=== PATIENT | female | born 1975 | race African-American/Black ===

== ENCOUNTER → 2018-10-12 | Outpatient (CLI) | payer OTHER ==
[2018-09-21 09:28] VITALS: BP 107/63
[~2018-10-12] MED LIST: ALBU2.5V8 INH; ATOR10TA60 PO; CIPR250T30 PO; FLUO20CA16 PO; LISI1TAB7 PO; METO100T5 PO; METR-84 PO
--- NOTE | 2018-10-15 12:11 | RAD ---
DATE: 10/12/2018 EXAM: MAMMO JAMES SCREENING BILATERAL HISTORY: Routine screening COMPARISON: Baseline study This study was interpreted with the benefit of Computerized Aided Detection (CAD). Breast Density: SCATTERED The breast parenchyma shows scattered fibroglandular densities. Breast parenchyma level B. FINDINGS: 2-D and 3-D tomosynthesis imaging was performed in CC and MLO projections. No suspicious breast densities are seen. Benign-appearing lymph node type densities are present in the axillary tail regions. No suspicious microcalcifications are evident. IMPRESSION: There is no mammographic evidence of malignancy in either breast. BI-RADS CATEGORY: 2 BENIGN FINDING(S) RECOMMENDED FOLLOW-UP: 12M 12 MONTH FOLLOW-UP PQRS compliance statement: Patient information was entered into a reminder system with a target due date for the next mammogram. Mammography is a sensitive method for finding small breast cancers, but it does not detect them all and is not a substitute for careful clinical examination. A negative mammogram does not negate a clinically suspicious finding and should not result in delay in biopsying a clinically suspicious abnormality. "Our facility is accredited by the [employer] Mammography [employer]."
== END | disposition home or self-care (01) ==
LOC: MAMMO 09:56
PROVIDERS: ATTEND Family Medicine
DX: Z12.31 Encounter for screening mammogram for malignant neoplasm of breast (principal)
CPT/HCPCS: 77063; 77067

== ENCOUNTER → 2019-11-08 | Outpatient (CLI) | payer OTHER ==
[2018-09-21 09:28] VITALS: BP 107/63
[~2019-11-08] MED LIST changes: +LISI1TAB20 PO; -LISI1TAB7 PO; +METR-34 PO; -METR-84 PO
--- NOTE | 2019-11-08 12:06 | KCIC ---
Bilateral digital screening mammograms: Reason for examination: Routine screening. Comparison is made to previous study dated 10/12/2018. Interpretation was made with the benefit of CAD. The skin and nipples show no abnormalities. No abnormal axillary lymph nodes are seen. The breast parenchyma shows scattered fibroglandular density. (Breast density: Category B.) There are no dominant masses, suspicious calcifications or architectural distortions. Impression: No evidence of malignancy. Recommend routine screening. BI-RADS Category 1: Negative. "Our facility is accredited by the [employer] Mammography [employer]." This patient's information has been entered into a reminder system for the patient to be notified with the results of her examination and a target date for the next mammogram. Electronically signed by: Joanne Merchant MD (11/08/2019 12:03 PM) [id number]
== END | disposition home or self-care (01) ==
LOC: KCIC MAMMO 08:48
PROVIDERS: ATTEND Family Medicine
DX: Z12.31 Encounter for screening mammogram for malignant neoplasm of breast (principal)
CPT/HCPCS: 77067

== ENCOUNTER → 2019-12-03 | Outpatient (CLI) | payer OTHER ==
[2018-09-21 09:28] VITALS: BP 107/63
--- NOTE | 2019-12-03 08:48 | RAD ---
EXAM: Pelvic sonogram. HISTORY: Dysfunctional uterine bleeding. TECHNIQUE: Sonographic imaging of the pelvis was performed. COMPARISON: None. FINDINGS: The uterus measures 8.9 x 5.4 x 3.7 cm. The endometrial stripe measures 5.6 mm. The ovaries are normal in size and demonstrate normal blood flow. There is no pelvic free fluid. IMPRESSION: Unremarkable pelvic sonogram. Electronically signed by: Amber Head MD (12/03/2019 8:45 AM) [id number]
== END | disposition home or self-care (01) ==
LOC: US 07:44
PROVIDERS: ATTEND Family Medicine
DX: N93.8 Other specified abnormal uterine and vaginal bleeding (principal)
CPT/HCPCS: 76856

== ENCOUNTER → 2021-02-05 | Outpatient (CLI) | payer OTHER ==
[2018-09-21 09:28] VITALS: BP 107/63
[~2021-02-05] MED LIST changes: +ATOR20TA58 PO; +CETI10TA74 PO; +DILT180C2 PO; +FLUO20TA11 PO; +LACT1CAP6 PO; +MULT-245 PO; +VITA1TAB19 PO
--- NOTE | 2021-02-05 15:10 | KCIC ---
Exam performed: Right shoulder 3 views. Indication: Right shoulder pain for one month no recent injury Date of Service: 01/26/2021. Comparison: None available 3 views right shoulder findings: AP view of the right shoulder in internal and external rotation and Y views obtained. Postoperative changes of ORIF right proximal humerus with a intramedullary humberto and several screws. Th e glenohumeral and acromioclavicular joints appear preserved. Normal alignment of the glenohumeral an d acromioclavicular joint is preserved. There is no acute fracture or dislocation. No obvious soft ti ssue swelling or foreign body seen. Impression: 1. No definite abnormality seen in the right shoulder. Electronically signed by: Francoise Li MD (02/05/2021 3:07 PM) [id number]
== END ==
LOC: KCIC 12:34
PROVIDERS: ATTEND Family Medicine
DX: M25.511 Pain in right shoulder (principal)
CPT/HCPCS: 73030

== ENCOUNTER 2021-08-02 10:44 | Emergency (ER) | payer OTHER ==
[~2021-08-02] VITALS: Ht 152.4 cm; Wt 67.0 kg
[~2021-08-02 10:44] MED LIST changes: -LISI1TAB20 PO; +LISI1TAB39 PO
[2021-08-02] MEDS ORDERED: methylPREDNISolone SOD SUCC PF 125 MG/2 ML VIAL. IV ONE (12:30)
[2021-08-02] MEDS ORDERED: IV NORMAL SALINE 1000ML BAG 1,000 ML IV ONE (12:30)
--- NOTE | 2021-08-02 12:48 | RAD ---
EXAM: Chest, single view. HISTORY: Tachycardia. COMPARISON: None. FINDINGS: A frontal view of the chest is obtained. There is no infiltrate, pleural effusion or pneumo thorax. The heart is normal in size. There is internal fixation of a healed proximal humeral fracture . IMPRESSION: No acute pulmonary finding. Electronically signed by: Amber Head MD (08/02/2021 12:46 PM) [id number]
[2021-08-02 13:10] LABS: BASO # 0.1 x10^3/uL (0.0-0.2); BASO % 1 % (0-3); EOS # 0.1 x10^3/uL (0.0-0.7); EOS % 1 % (0-3); HEMATOCRIT 38.9 % (36.0-47.0); HEMOGLOBIN 13.8 g/dL (12.0-15.5); LYMPH # 3.4 x10^3/uL (1.0-4.8); LYMPH % 28 % (24-48); MEAN CORPUSCULAR HEMOGLOBIN 36 pg (25-35); MEAN CORPUSCULAR HGB CONC 36 g/dL (31-37); MEAN CORPUSCULAR VOLUME 102 fL (79-100); MONO # 0.8 x10^3/uL (0.0-1.1); MONO % 6 % (0-9); NEUT % 64 % (31-73); PLATELET COUNT 307 x10^3/uL (140-400); RED BLOOD COUNT 3.81 x10^6/uL (3.50-5.40); RED CELL DISTRIBUTION WIDTH 13.8 % (11.5-14.5); WHITE BLOOD COUNT 12.4 x10^3/uL (4.0-11.0)
[2021-08-02 13:16] LABS: CALCIUM 9.3 mg/dL (8.5-10.1); CREATININE 0.9 mg/dL (0.6-1.0); GFR 81.2; POTASSIUM 3.4 mmol/L (3.5-5.1)
[2021-08-02 13:20] LABS: ALBUMIN 4.3 g/dL (3.4-5.0); ALBUMIN/GLOBULIN RATIO 1.1 (1.0-1.7); C-REACTIVE PROTEIN 2.1 mg/L (0-3.3); TOTAL BILIRUBIN 0.4 mg/dL (0.2-1.0); TOTAL PROTEIN 8.3 g/dL (6.4-8.2)
--- NOTE | 2021-08-02 13:23 | EKG ---
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
[2021-08-02] MEDS ORDERED: PRED20TA PO (15:36)
--- NOTE | 2021-08-02 15:37 | PHYS DOC ---
Past Medical History Past Medical History: Hypertension Past Surgical History: Tubal ligation, Other Additional Past Surgical Histo: R ROTATOR CUFF Smoking Status: Current Every Day Smoker Additional Information: 1 PPD Alcohol Use: Occasionally Drug Use: None General Adult EDM: Chief Complaint: ALLERGIC REACTION HPI: HPI: Patient is a 45-year-old female presents emergency department concerning inflammation of skin after being on antibiotics for spider bites. Patient complains of painful itching to infection sites for she believes she was bit by spiders. Patient denies seeing anything bite her skin, she does assumes she was bitten by spiders because she was out in the [place]. Patient denies tick bites. Denies headaches, fevers, neck aches, nausea, vomiting, diarrhea patient denies aches or pains, denies chest pain or shortness of breath. Denies other physical complaints or physical concerns. Review of Systems: Review of Systems: 14 body systems of review of systems have been reviewed. See HPI for pertinent positives and negative responses, otherwise all other systems are negative, nonpertinent or noncontributory. Constitutional: Negative except as outlined in HPI above. Skin: Negative except as outlined in HPI above. Eyes: Negative except as outlined in HPI above. HENT: Negative except as outlined in HPI above. Respiratory: Negative except as outlined in HPI above. Cardiovascular: Negative except as outlined in HPI above. GI: Negative except as outlined in HPI above. : Negative except as outlined in HPI above. Musculoskeletal: Negative except as outlined in HPI above. Integument: Negative except as outlined in HPI above. Neurologic: Negative except as outlined in HPI above. Endocrine: Negative except as outlined in HPI above. Lymphatic: Negative except as outlined in HPI above. Psychiatric: Negative except as outlined in HPI above. Heart Score: C/O Chest Pain: No Risk Factors: Risk Factors: DM, Current or recent (<one month) smoker, HTN, HLP, family history of CAD, obesity. Risk Scores: Score 0 - 3: 2.5% MACE over next 6 weeks - Discharge Home Score 4 - 6: 20.3% MACE over next 6 weeks - Admit for Clinical Observation Score 7 - 10: 72.7% MACE over next 6 weeks - Early Invasive Strategies Current Medications: Current Medications Medications (Trade) Dose Ordered Sig/Sushila Start Time Stop Time Status Last Admin Dose Admin Methylprednisolone Sodium Succinate (SOLU-Medrol 125MG VIAL) 125 mg 1X ONCE 08/02/21 12:30 08/02/21 12:31 DC 08/02/21 13:00 125 MG Sodium Chloride 1,000 ml @ 1,000 mls/hr 1X ONCE 08/02/21 12:30 08/02/21 13:29 DC 08/02/21 12:58 1,000 MLS/HR Allergies: Allergies: Allergies Coded Allergies Type Severity Reaction Last Updated Verified Penicillins Allergy Severe Anaphylaxis 12/11/19 Yes amoxicillin Allergy Intermediate ITCHING AND BURNING RIGHT SIDE ABDOMEN 08/02/21 Yes clavulanic acid Allergy Intermediate ITCHING AND BURNING RIGHT SIDE ABDOMEN 08/02/21 Yes doxycycline Allergy Intermediate "BROKE OUT" 08/02/21 Yes sulfamethoxazole Allergy Intermediate ITCHING AND BURNING RIGHT SIDE ABDOMEN 12/11/19 Yes trimethoprim Allergy Intermediate ITCHING AND BURNING RIGHT SIDE ABDOMEN 12/11/19 Yes mupirocin Allergy Unknown "BROKE OUT" 08/02/21 Yes Physical Exam: PE: Constitutional: Well developed, well nourished, no acute distress, non-toxic appearance. 45-year-old female in no apparent distress. HENT: Normocephalic, atraumatic. Eyes: Conjunctiva normal, no discharge. Neck: Normal range of motion, no stridor. Cardiovascular: No cyanosis appreciated, distal cap refill less than 2 seconds. Lungs & Thorax: Patient is in no respiratory distress, no audible adventitious lung sounds appreciated. Abdomen: Nontender, no abnormalities noted. Skin: Warm, dry, no erythema, no rash. Patient does have square-shaped rash to bilateral lower extremities erythematous with excoriation and lichenification. No purulent drainage, no target sign skin rash. Back: No tenderness, no deformities. Extremities: No tenderness, no cyanosis, no clubbing, ROM intact, no edema. Neurologic: Alert and oriented X 3, normal motor function, normal sensory function, no focal deficits noted. Psychologic: Affect normal, judgement normal, mood normal. Current Patient Data: Labs: Laboratory Tests Test 08/02/21 12:44 White Blood Count 12.4 x10^3/uL (4.0-11.0) H Red Blood Count 3.81 x10^6/uL (3.50-5.40) Hemoglobin 13.8 g/dL (12.0-15.5) Hematocrit 38.9 % (36.0-47.0) Mean Corpuscular Volume 102 fL (79-100) H Mean Corpuscular Hemoglobin 36 pg (25-35) H Mean Corpuscular Hemoglobin Concent 36 g/dL (31-37) Red Cell Distribution Width 13.8 % (11.5-14.5) Platelet Count 307 x10^3/uL (140-400) Neutrophils (%) (Auto) 64 % (31-73) Lymphocytes (%) (Auto) 28 % (24-48) Monocytes (%) (Auto) 6 % (0-9) Eosinophils (%) (Auto) 1 % (0-3) Basophils (%) (Auto) 1 % (0-3) Neutrophils # (Auto) 8.0 x10^3/uL (1.8-7.7) H Lymphocytes # (Auto) 3.4 x10^3/uL (1.0-4.8) Monocytes # (Auto) 0.8 x10^3/uL (0.0-1.1) Eosinophils # (Auto) 0.1 x10^3/uL (0.0-0.7) Basophils # (Auto) 0.1 x10^3/uL (0.0-0.2) Erythrocyte Sedimentation Rate 31 (0-25) H Sodium Level 137 mmol/L (136-145) Potassium Level 3.4 mmol/L (3.5-5.1) L Chloride Level 98 mmol/L (98-107) Carbon Dioxide Level 28 mmol/L (21-32) Anion Gap 11 (6-14) Blood Urea Nitrogen 13 mg/dL (7-20) Creatinine 0.9 mg/dL (0.6-1.0) Estimated GFR (Cockcroft-Gault) 81.2 BUN/Creatinine Ratio 14 (6-20) Glucose Level 113 mg/dL (70-99) H Lactic Acid Level 1.3 mmol/L (0.4-2.0) Calcium Level 9.3 mg/dL (8.5-10.1) Total Bilirubin 0.4 mg/dL (0.2-1.0) Aspartate Amino Transferase (AST) 16 U/L (15-37) Alanine Aminotransferase (ALT) 33 U/L (14-59) Alkaline Phosphatase 88 U/L (46-116) C-Reactive Protein, Quantitative 2.1 mg/L (0-3.3) Total Protein 8.3 g/dL (6.4-8.2) H Albumin 4.3 g/dL (3.4-5.0) Albumin/Globulin Ratio 1.1 (1.0-1.7) Laboratory Tests 08/02/21 12:44 Laboratory Tests 08/02/21 12:44 Vital Signs: Vital Signs Date Time Temp Pulse Resp B/P (MAP) Pulse Ox O2 Delivery O2 Flow Rate FiO2 08/02/21 11:58 98.4 119 17 170/79 (109) 100 Room Air 98.4 EKG: EKG: EKG performed at 1230 by ED nursing staff shows a sinus tachycardia with with leftward axis, heart rate 107 bpm, no other ectopy appreciated, AL interval 0.108, QTc interval 0.451, no acute STEMI, no ACS, no acute ischemia appreciated, EKG interpreted by ED attending physician Dr. Cope. Radiology/Procedures: Radiology/Procedures: PATIENT: RADHA CORTES EACCOUNT: [id number] : 1975 LOCATION: ER AGE: 45 SEX: F EXAM STATUS: REG ER ORD. PHYSICIAN: HARSHA KLEIN APRN REASON: Tachycardia,pt states reaction to cream used for spider bite PROCEDURE: CHEST AP ONLY EXAM: Chest, single view. HISTORY: Tachycardia. COMPARISON: None. FINDINGS: A frontal view of the chest is obtained. There is no infiltrate, pleural effusion or pneumothorax. The heart is normal in size. There is internal fixation of a healed proximal humeral fracture. IMPRESSION: No acute pulmonary finding. Electronically signed by: Amber Head MD (08/02/2021 12:46 PM) [id number] Course & Med Decision Making: Course & Med Decision Making Pertinent Labs and Imaging studies reviewed. (See chart for details) 45-year-old female, vital signs reviewed, presents emerged from concerning skin rash since starting on doxycycline. Patient's physical examination concerning for contact dermatitis versus adverse medication reaction. Related to patient's explanation of events, will order CBC, CMP, ESR, CRP, blood cultures x2. Patient is tachycardic upon presentation, will order 1 L normal saline, EKG. Chest x-ray. Patient's lab work nonconcerning for acute infectious process, patient was given 125 mg Solu-Medrol for suspicious contact dermatitis, will start on prednisone p.o., patient does have follow-up with Dr. Barrett this coming Monday, discussed with patient keeping this appointment, this is a muscular return to ER precautions and concerns, patient is amenable to ED discharge planning. Low likelihood of tickborne illness, blood cultures are pending at this time. Discussed with the patient all findings and diagnostic testing as well as the need to follow-up with their primary care provider for further evaluation and treatment or return to the ED if any new or worsening symptoms. Strict return precautions were also discussed at length, the patient voiced understanding and agreement with the discharge planning. The patient was nontoxic in appearance, in no apparent distress, and hemodynamically stable at the time of disposition. Dragon Disclaimer: Dragon Disclaimer: This electronic medical record was generated, in whole or in part, using a voice recognition dictation system. Departure Departure Impression: Primary Impression: Contact dermatitis Qualified Codes: L24.9 - Irritant contact dermatitis, unspecified cause Disposition: HOME / SELF CARE / HOMELESS Condition: GOOD Referrals: HARSHA BARRETT MD (PCP) Patient Instructions: Contact Dermatitis Additional Instructions: You were seen today in the emergency department for a rash and reaction to your skin where you are being treated for spider bites. I believe you are having a adverse reaction to either something you came in contact with or the doxycycline medication that you have since stopped taking. I have started you on a oral prednisone per prescription, please take as directed till complete. Please keep your appointment with Dr. Barrett this coming Monday. This is a must. Return to the emergency department for worsening symptoms or other concerns. Thank you for visiting our Emergency Department. It was a pleasure taking care of you today in the emergency department and we appreciate you trusting us with your care. If any additional problems come up don't hesitate to return to visit us. Please follow up with your primary care provider so they can plan additional care if needed and know about the problem that you had. If symptoms worsen come back to the Emergency Department. Any concerning symptoms that start such as chest pain, shortness of air, weakness or numbness on one side of the body, running high fevers or any other concerning symptoms return to the ER. EMERGENCY DEPARTMENT GENERAL DISCHARGE INSTRUCTIONS Thank you for coming to [facility] Emergency Department (ED) today and trusting us with you care. We trust that you had a positive experience in our Emergency Department. If you wish to speak to the department management, you may call the Director at [phone]. YOUR FOLLOW UP INSTRUCTIONS ARE FOLLOWS: 1. Do you have a private Doctor? If you do not have a private doctor, please ask for a resource list of physicians or clinics that may be able to assist you with follow up care. 2. The Emergency Physicain has interpreted your x-rays. The X-Ray specialist will also review them. If there is a change in the findings, you will be notified in 48 hours when at all possible. 3. A lab test or culture has been done, your results will be reviewed and you will be notified if you need a change in treatment. ADDITIONAL INSTRUCTIONS AND INFORMATION: 1. Your care today has been supervised by a physician who is specially trained in emergency care. Many problems require more than one evaluation for a complete diagnosis and treatment. We recommend that you schedule your follow up appointment as recommended to ensure complete treatment of you illness or injury. If you are unable to obtain follow up care and continue to have a problem, or if your condition worsens, we recommend that you return to the ED. 2. We are not able to safely determine your condition over the phone nor are we able to give sound medical advice over the phone. For these safety reasons, if you call for medical advice we will ask you to come to the ED for further evaluation. 3. If you have any questions regarding these discharge instructions please call the ED at [phone]. SAFETY INFORMATION: In the interest of safety, wellness, and injury prevention; we encourage you to wear your sealbelt, if you smoke; quite smoking, and we encourage family to use a protective helmet for bicycling and other sporting events that present an increased risk for head injury. IF YOUR SYMPTOMS WORSEN OR NEW SYMPTOMS DEVELOP, OR YOU HAVE CONCERNS ABOUT YOUR CONDITION; OR IF YOUR CONDITION WORSENS WHILE YOU ARE WAITING FOR YOUR FOLLOW UP A PPOINTMENT; EITHER CONTACT YOUR PRIMARY CARE DOCTOR, THE PHYSICIAN WHOSE NAME AND NUMBER YOU WERE Rashi [id number], OR RETURN TO THE ED IMMEDIATELY. Scripts Prednisone (PREDNISONE) 20 Mg Tablet 3 TAB PO DAILY for 14 Days, #42 TAB 0 Refills Prov: HARSHA KLEIN APRN 08/02/21 HARSHA KLEIN APRN Aug 02, 2021 15:37
[2021-08-02 16:00] VITALS: BP 120/68
== END 2021-08-02 16:10 | disposition home or self-care (01) ==
LOC: ER 10:44
DX: L24.9 Irritant contact dermatitis, unspecified cause (principal); I10 Essential (primary) hypertension; F17.200 Nicotine dependence, unspecified, uncomplicated; Z88.0 Allergy status to penicillin; Z88.1 Allergy status to other antibiotic agents; Z88.2 Allergy status to sulfonamides; Z88.8 Allergy status to other drugs, medicaments and biological substances
CPT/HCPCS: 36415; 71045; 80053; 83605; 85025; 85651; 86140; 87040; 93005; 96361; 96374; 99285; J2930; J7030